=== PATIENT | male | born 1945 | race Caucasian/White ===

== ENCOUNTER 2018-12-27 15:31 | Inpatient (IN) | payer OTHER, BC ==
[~2018-12-27] VITALS: Ht 177.8 cm; Wt 70.3 kg
[2018-12-27 15:41] VITALS: Ht 177.8 cm; Wt 70.3 kg
--- NOTE | 2018-12-27 16:25 | NUR ---
PT PRESENTED TO ED FOR SUPRAPUBIC ABDOMINAL PAIN X 4 DAYS AND URINARY RETENTION AND BURNING UPON URINATION X 4 HOURS. PAIN IN ABDOMEN IS TENDER TO PALPATION. PT REPORTS PAIN IS CRAMPING AND SHARP. PT STATES LAST BM WAS 4 DAYS AGO. PT DENIES ANY NAUSEA, VOMITING, DIARRHEA. PT IN NAD. BREATHING EVEN AND UNLABORED. WILL CONTINUE TO MONITOR.
--- NOTE | 2018-12-27 16:33 | NUR ---
ED PHYSICIAN AT BEDSIDE FOR PATIENT EVALUATION. MEDICAL SCREENING EXAMINATION COMPLETED BY ED PHYSICIAN DR. FUENTES.
[2018-12-27 17:02] LABS: microscopic required? NO
[2018-12-27 17:03] LABS: BASOPHIL % 0.6 % (0-2); PLATELET COUNT 281 x10^3mcL (130-400)
[2018-12-27 17:06] LABS: RED CELL DISTRIBUTION WIDTH 14.6 % (11.5-14.5)
[2018-12-27 17:13] LABS: CALCIUM 9.1 mg/dL (8.5-10.1); CARBON DIOXIDE 28.7 mmol/L (21-32); CHLORIDE SERUM 102 mmol/L (98-107); CREATININE SERUM 0.9 mg/dL (0.7-1.3); GLUCOSE SERUM 115 mg/dL (74-106); POTASSIUM SERUM 3.9 mmol/L (3.5-5.1); SODIUM SERUM 139 mmol/L (136-145)
--- NOTE | 2018-12-27 17:14 | NUR ---
AT BEDSIDE PT IS AAOX4. RESPS E/U. SKIN IS PINK AND WARM. PT PLACED ON MONITOR BED RAIL UP X2 FOR SAFETY. PT ORIENTED TO ROOM, USE OF CALL ASHTON, AND BED IN LOWEST POSITION. PT CALM AND COOPERATIVE. PT HAS HX OF STROKE AND L SIDED WEAKNESS. PT ALSO HAS HX OF PROSTATE ENLARGMENT. PT FEELS NEED TO URINATE, BUT IS UNABLE TO. DR. FUENTES MADE AWARE. NO C/O N/V/D OR FEVER. PT SPEAKING IN FULL SENTENCES.
[2018-12-27 17:16] LABS: UA SPECIFIC GRAVITY 1.015 (1.005-1.035); urine erythrocyte NEGATIVE (NEGATIVE)
[2018-12-27 17:17] LABS: ALBUMIN 3.6 g/dL (3.4-5.0); ALKALINE PHOSPHATASE 87 U/L (46-116); ALT/SGPT 29 U/L (16-63); AST/SGOT 22 U/L (15-37); BILIRUBIN TOTAL 0.34 mg/dL (0.20-1.00); TOTAL PROTEIN, SERUM 7.2 g/dL (6.4-8.2)
--- NOTE | 2018-12-27 18:03 | NUR ---
NO CHANGE IN STATUS. PT WATCHING TV. IN A POSITION OF COMFORT. RESPS E/U, SKIN PINK, WARM AND DRY.
--- NOTE | 2018-12-27 19:19 | NUR ---
BARRON REMOVED, PT TOLERATED WELL. 1600 ML OUTPUT.
[2018-12-27] MEDS ORDERED: CITALOPRAM HYDR10 M1 PO (19:24)
[2018-12-27] MEDS ORDERED: GOOD SENSE ASP325 MG PO (19:24)
[2018-12-27] MEDS ORDERED: COLACE100 MG (19:25)
[2018-12-27] MEDS ORDERED: CLOPIDOGREL75 M1 PO (19:25)
[2018-12-27] MEDS ORDERED: LIPITOR80 MG GT (19:25)
[2018-12-27] MEDS ORDERED: LIPITOR80 MG PO (19:26)
[2018-12-27] MEDS ORDERED: MIDODRINE HCL10 MG PO (19:26)
[2018-12-27] MEDS ORDERED: CYMBALTA60 M1 PO (19:26)
[2018-12-27] MEDS ORDERED: KEPPRA500 MG PO (19:27)
--- NOTE | 2018-12-27 19:48 | NUR ---
RECEIVED REPORT ON PT. PT IS LYING CALMLY IN BED WITH AT BEDSIDE. MED LIST COLLECTED. WILL CONTINUE FORWARD WITH ADMISSION PROCESS.
--- NOTE | 2018-12-27 19:51 | NUR ---
REPORT GIVEN TO MARIE FROM THE TELE UNIT TO ASSUME REPORT.
--- NOTE | 2018-12-27 19:58 | NUR ---
PT AND PROVIDED WITH NEXT STEPS IN ADMISSION PROCESS. PT BEING MOVED TO MED SURG BY KENYA OROZCO.
[2018-12-27 20:00] LABS: CHOLESTEROL/HDL RATIO 2.8; MAGNESIUM 1.9 mg/dL (1.8-2.4); PHOSPHOROUS 3.1 mg/dL (2.5-4.9)
--- NOTE | 2018-12-27 20:00 | NUR ---
RECEIVED PT VIA GUERNEY FROM E/D, ACCOMPANIED BY RN AND TRANSPORTER. PT A/A/O X 4, CALM, COOPERATIVE, PT WITH EPISODES OF DEPRESSION AMB VERBALIZATION OF SADNESS AND LOSS OF BODILY FUNCTION, W/ HX OF SUICIDAL THOUGHTS (SHOOT SELF); PT HAS SLOW BUT CLEAR SPEECH, STARTED ON SEIZURE PRECAUTIONS, IS SITKA, AND WEARS GLASSES (W/ PT). PM AND LOOP RECORDER AT LEFT CHEST WALL (VISIBLE HEALED SX SCARS), DENIES CHEST PAIN OR DISCOMFORT AT THIS TIME. NO RESPIRATORY DISTRESS NOTED. ABD SOFT, FLAT, TENDERNESS UPON PALPATION TO LOWER ABD, HYPERACTIVE BOWEL SOUNDS TO QUADS 1 - 3, NORMOACTIVE TO QUAD 4, DULLNESS ON PERCUSSION TO QUADS 1 - 4, LAST BM 12/23/18, HARD, PT W/ POOR APPETITE. VOIDS FREELY BUT WITH EPISODES OF INCONTINENCE. PT HAS LEFT-SIDED PARALYSIS, FALL RISK PROTOCOL INITIATED, SUBLUXATION OF LEFT SHOULDER. IV SITE RAC 20G, CDI. ORIENTED PT TO ROOM, BED CONTROLS, CALL LIGHT SYSTEM. PADDED SIDE RAILS UP X 2, BED IN LOW POSITION. WILL ENDORSE TO KENYA SALAZAR.
[2018-12-27 20:04] LABS: AMPHETAMINE QUAL UR NONE DETECTED (See below)
[2018-12-27 20:07] LABS: T3 TOTAL 1.12 ng/mL
[2018-12-27 20:11] LABS: FREE T4 0.88 ng/dL (0.76-1.46); FREE THYROXINE INDEX 1.9 ug/dL (1.4-4.5); T4(THYROXINE) 5.5 ug/dL (4.7-13.3)
[2018-12-27 20:50] VITALS: BP 137/79
--- NOTE | 2018-12-27 22:25 | NUR ---
PT HAD MEDIUM, FORMED BOWEL MOVEMENT; DR. RIOJAS MADE AWARE; PER DR. RIOJAS TO CONTINUE ORDER FOR RECTAL SUPP. BUT TO HOLD ON ENEMA; PT REPORTS FEELING BETTER AND STATES "I'M PASSING GAS AND FEEL SOME CRAMPING." PT CLEANED AND SUPP GIVEN; INSTRUCTED PT TO NOTIFY WHEN FEELING THE URGE FOR BM AND BED ARANDA WILL BE USED; PT VERBALIZED UNDERSTANDING.
[2018-12-28 05:54] VITALS: BP 93/59
--- NOTE | 2018-12-28 06:11 | NUR ---
PT HAS BEEN AWAKE WITH MINIMAL SLEEP. PT HAD X2 BM DURING SHIFT, CONTINUING TO HAVE RECTAL AND ABD DISCOMFORT AND CRAMPING. PT CONTINUED TO FEEL CONSTIPATED AND NOT HAVING RELIEF SO ENEMA ADMINISTERED. NO FURTHER BM NOTED OF YET. IV PATENT AND INTACT. SAFETY MEASURES MAINTAINED. CALL LIGHT IN REACH. WILL ENDORSE CARE TO AM NURSE AND CONTINUE TO MONITOR.
[2018-12-28 06:40] LABS: BASOPHIL % 0.4 % (0-2); PLATELET COUNT 244 x10^3mcL (130-400); RED CELL DISTRIBUTION WIDTH 15.5 % (11.5-14.5)
[2018-12-28 06:47] LABS: CALCIUM 8.9 mg/dL (8.5-10.1); CARBON DIOXIDE 26.2 mmol/L (21-32); CHLORIDE SERUM 105 mmol/L (98-107); CREATININE SERUM 0.9 mg/dL (0.7-1.3); GLUCOSE SERUM 142 mg/dL (74-106); MAGNESIUM 1.8 mg/dL (1.8-2.4); PHOSPHOROUS 3.6 mg/dL (2.5-4.9); POTASSIUM SERUM 3.3 mmol/L (3.5-5.1); SODIUM SERUM 142 mmol/L (136-145)
--- NOTE | 2018-12-28 07:30 | NUR ---
RECEIVED PT FROM [place] [facility] OPERATOR RN. Liz/ANDREINA. TELE#28. RESPIRATIONS EQUAL AND UNLABORED ON RA. NO ACUTE RESP DISTRESS NOTED. PT C/O ABDOMINAL CRAMPING. IV TO RAC SALINE LOCKED. NO REDNESS OR SWELLING NOTED. WILL CONTINUE TO MONITOR. CALL LIGHT IN REACH. BED IN LOWEST POSTION.
[2018-12-28 09:30] VITALS: BP 124/82
--- NOTE | 2018-12-28 09:54 | NUR ---
PT IN BED RESTING. GIVEN PO MEDS. TOLERATED WELL. PT STATING HE NEEDS TO HAVE A BM. GIVEN BED ARANDA. DENIES ANY PAIN AT THIS TIME. WILL CONTINUE TO MONITOR. CALL LIGHT IN REACH. BED IN LOWEST POSITION.
[2018-12-28 12:56] VITALS: BP 121/78
--- NOTE | 2018-12-28 14:12 | NUR ---
PT RESTING IN BED. PT HAD A SMALL FORMED HARD BM. PT STATES HE IS CURRENTLY NOT HAVING ABDOMINAL CRAMPING BUT IT COMES AND GOES. SOAP SUDS ENEMA ADMINISTERED. PT STATES HE MAY BE ABLE TO PASS ANOTHER BM BUT IS MAINLY HAVE FLATUS. PT URINATED 180ML OF ENRIQUE URINE. WILL CONTINUE TO MONITOR. BED IN LOWEST POSITION. CALL LIGHT IN REACH.
[2018-12-28 14:22] VITALS: BP 121/78
--- NOTE | 2018-12-28 16:03 | NUR ---
PT SITTING UP IN BED WITH AT BEDSIDE. PT STATES HE HAD A SMALL BM AND IS CURRENTLY HAVING NO ABDOMINAL CRAMPING. PT IS EATING LUNCH. PT STATES HE HAS NOT HAD MUCH OF AN APPETITE LATELY. WILL CONTINUE TO MONITOR. CALL LIGHT IN REACH. BED IN LOWEST POSITION.
[2018-12-28 17:19] VITALS: BP 135/88
--- NOTE | 2018-12-28 17:48 | NUR ---
PT SITTING IN BED ON BEDPAN. PT C/O ABDOMINAL CRAMPING AND FEELING THE NEED TO HAVE A BM. REMOVED 3 SMALL HARD STOOLS DIGITALLY. PT STATES HE FEELS SOME RELEIF BUT STILL FEELS CONSTIPATED. PT SITTING UP EATING DINNER. WILL CONTINUE TO MONITOR. CALL LIGHT IN REACH. BED IN LOWEST POSITION.
--- NOTE | 2018-12-28 18:41 | NUR ---
PT RESTING IN BED. GIVEN MOM PO. ALSO ADMINISTERED FLEET ENEMA. PT STATES HE WAS ABLE TO HAVE A SMALL BM BUT STILL FEELS THE URGE TO GO. RESPIRATIONS EQUAL AND UNLABORED ON RA. NO ACUTE DISTRESS NOTED. IV SALINE LOCKED. NO REDNESS OR SWELLING NOTED. WILL CONTINUE TO MONITOR. CALL LIGHT IN REACH. BED IN LOWEST POSITION.
--- NOTE | 2018-12-28 18:56 | NUR ---
PT PASSED MEDIUM SIZE HARD BM. PT STATES HE HAS FELT SOME RELEIF SINCE PASSING BM. DENIES ANY ABD PAIN AT THIS TIME. RESPIRATIONS EQUAL AND UNLABORED ON RA. NO ACUTE DISTRESS NOTED. TELE#28. IV SALINE LOCKED. NO REDNESS OR SWELLING NOTED. WILL ENDORSE TO TRIPPER RN. CALL LIGHT IN REACH. BED IN LOWEST POSITION.
--- NOTE | 2018-12-28 19:17 | NUR ---
PT RECEIVED A/O X4, SLOW SPEECH, ABLE TO MAKE NEEDS KNOWN. WALES IN VETO EARS. SEIZURE PRECAUTIONS IN PLACE. TELE #28, NSR, DENIES ANY CHEST PAIN/PRESSURE. PACEMAKER TO LEFT UPPER CHEST. PULSES PALPABLE, NO EDEMA PRESENT. LUNG SOUNDS CTA, BREATHING EVEN AND UNLABORED ON RA, DENIES SOB, NO RESP DISTRESS NOTED. ABD SOFT AND FLAT, BOWEL TONES HYPERACTIVE X4 QUAD, DENIES N/V. VOIDS FREELY, MAY HAVE EPISODES OF URINARY RETENTION, URINAL AT BEDSIDE. GENERALIZED WEAKNESS, LEFT-SIDED PARALYSIS. SKIN IS INTACT. PT DENIES DENIES ANY PAIN AT THIS TIME. SL TO RAC, PATENT AND INTACT, SITE WNL. BED IN LOWEST SETTING, SIDE RAILS UP X2, CALL LIGHT WITHIN REACH. WILL CONT TO MONITOR.
[2018-12-28 20:41] VITALS: BP 122/81
--- NOTE | 2018-12-28 22:38 | NUR ---
PT ASSISTED ONTO BEDPAN, NO BM AT THIS TIME, VOIDED ONLY. PT REPORTS PASSING A LOT OF GAS. PT CLEANED AND REPOSITIONED. NO ACUTE DISTRESS NOTED. BED ALARM ON. CALL LIGHT WITHIN REACH. WILL CONT TO MONITOR.
--- NOTE | 2018-12-29 00:18 | NUR ---
PT RESTING IN BED, AWAKE AND ALERT. BREATHING IS EVEN AND UNLABORED, NO RESP DISTRESS NOTED. PT DENIES HAVING ANY PAIN AT THIS TIME. SL TO RAC INTACT. BED ALARM ON. CALL LIGHT WITHIN REACH. NO ACUTE DISTRESS NOTED. WILL CONT TO MONITOR.
[2018-12-29 05:23] VITALS: BP 101/65
[2018-12-29 06:32] LABS: CALCIUM 9.3 mg/dL (8.5-10.1); CARBON DIOXIDE 29.9 mmol/L (21-32); CHLORIDE SERUM 104 mmol/L (98-107); CREATININE SERUM 0.8 mg/dL (0.7-1.3); GLUCOSE SERUM 98 mg/dL (74-106); SODIUM SERUM 141 mmol/L (136-145)
--- NOTE | 2018-12-29 06:39 | NUR ---
PT SLEPT AT INTERVALS THROUGHOUT THE NIGHT. BREATHING IS EVEN AND UNLABORED, NO RESP DISTRESS NOTED. PT DENIES HAVING ANY PAIN AT THIS TIME. DR GALVAN AT BEDSIDE ASSESSING PT. PER DR GALVAN, HOLD FLEET ENEMA AT TIME. SL TO RAC, PATENT AND INTACT, SITE WNL. ALL NEEDS MET. BED ALARM ON. CALL LIGHT WITHIN REACH. WILL ENDORSE CARE TO AM NURSE.
[2018-12-29 06:49] LABS: BASOPHIL % 0.9 % (0-2); PLATELET COUNT 258 x10^3mcL (130-400); RED CELL DISTRIBUTION WIDTH 15.2 % (11.5-14.5)
--- NOTE | 2018-12-29 07:38 | NUR ---
PT SEEN REST ON BED, A/O X 4. PT NO COMPLAIN OF PAIN AT THIS TIME. PT BREATHING ON RA, EVEN, UNLABORED. PT HAD LEFT SIDE WEAKNESS. PT REPORTED HE USED QUART CANE AT HOME. IV SITE PATENT, INTACT. SALINE LOCK PER ORDER. CALL LIGHT NEXT TO R HAND WITHIN REACH. WILL CONTINUE TO MONITOR.
[2018-12-29 08:27] VITALS: BP 94/58
--- NOTE | 2018-12-29 10:35 | NUR ---
PHYSICAL THERAPIST PROCESS PT EVAL. PT AMBULATED IN [place] WITH [facility]YN[facility] WALKER. PT DOING WELL. WILL CONTINUE TO MONITOR.
[2018-12-29 13:33] VITALS: BP 124/69
--- NOTE | 2018-12-29 13:56 | NUR ---
Initial Nutrition Assessment Dx: Severe constipation, Urinary retention PMHx: CVA (2018), Congenital heart defect, symptomatic bradycardia, prostate CA s/p radiation (2012), BPH PSHx: Pacemaker placement, loop recorder placement, and heart sx (date unknown) Labs: (12/29) Na 141, K 4, BG 98, BUN 15, Cr 0.8. A1c 5.9, WBC 6.1, H/H 11.4L/34L Meds: Aspirin, Colace, Symbalta, Dulcolax, Flomax, Keppra, Lipitor, Plavix, Pro-Amatine, Tylenol, Zofran, Celexa Diet: FLD PO Intake: (12/29) B: 100% (12/30) B: 50% Ht: 70" (178 cm) Wt: 155# (70.3 kg) BMI: 22.2 (Lower end WNL for advanced age) IBW: 166# %IBW: 93% UBW: 150-155# Age: 73 y/o elderly male Food Allergies: NKFA Skin: Intact Michael: 17 Edema: None GI: Last BM x 8 hard, small stools (2/4) Per H&P, pt. admitted with urinary retention x 1 day associated with suprapubic pain and dysuria and no BM x 4 days. Recovering from recent UTI for which pt. completed the course of prescribed antibiotics x 3 weeks ago. Abdominal X-ray conducted on 12/27 with findings that suggest mild fecal retention in the descending colon and rectum. Ileus pattern noted without evidence for bowel obstruction per provider notes. Pt. endorses fair to good appetite, which has improved from admission. Continues to c/o mild constipation, but states that medications provided for BM regimen has been helping. Updated food preferences on [employer] and will provide as able. T: Poor PO intake >3 days, appears malnourished/underweight Problem with: No c/o N/V/D/C Problems with: Chewing: N Swallowing: N Current appetite: Fair to good; improving Recent wt change: None %wt change: N/A Vitamin/Supplement use: MVI QD Special diet at home: Regular Physical activity: Walks with cane at baseline Education: No diet education provided. Encouraged pt. to increase fluid and fiber intake to stimulate BM. Estimated Nutritional Needs Based on actual body weight 70.3 kg: Energy: 0885-5125 kcal/d (25-30 kcal/kg- geriatric maintenance) Protein: 70-84 g/d (1.0-1.2 g/kg)-maintenance and preservation of lean body mass Fluid: 3939-1003 ml/d (1 ml/kcal-fluid balance) or per doctor Nutrition Diagnosis 1. Altered GI function r/t chronic medical condition AEB pt. reports of not having BM x 4 days prior to admission and continued c/o constipation and hard stools. Intervention/RD recommendations 1. When medically able, advance diet to regular diet to accommodate for food preferences. 2. Will add prune juice and yogurt (strawberry or raspberry per pt. request) TID w/meals for dietary measures for BM management. Monitor/Evaluate Goal: PO intake at least 75% of estimated needs Monitor: PO intake, Labs, GI function, diet tolerance F/U in 3-5 days as moderate risk (01/01-01/03)
--- NOTE | 2018-12-29 15:04 | NUR ---
PT'S AT BED SIDE. MADE HER AWARE ABOUT PT'S CARE PLAN. CONCERN AND QUESTIONS ANSWERED.
[2018-12-29 16:27] VITALS: BP 111/72
--- NOTE | 2018-12-29 19:25 | NUR ---
PT RECEIVED A/O X4, SLOW SPEECH, ABLE TO MAKE NEEDS KNOWN. [place] IN VETO EARS. SEIZURE PRECAUTIONS IN PLACE. TELE #28, DENIES ANY CHEST PAIN/PRESSURE. PACEMAKER TO LEFT UPPER CHEST. PULSES PALPABLE, NO EDEMA PRESENT. LUNG SOUNDS CTA, BREATHING EVEN AND UNLABORED ON RA, NO RESP DISTRESS NOTED. ABD SOFT AND FLAT, BOWEL TONES HYPERACTIVE X4 QUAD, DENIES N/V. PT REPORTS HAVING ABD CRAMPS AT TIMES. AM NURSE AT BEDSIDE ADMINISTERED SUPPOSITORY. VOIDS FREELY, URINAL AT BEDSIDE. GENERALIZED WEAKNESS, LEFT-SIDED PARALYSIS FROM PREVIOUS CVA. SKIN IS INTACT. PT DENIES DENIES ANY PAIN AT THIS TIME. SL TO RAC, PATENT AND INTACT, SITE WNL. BED IN LOWEST SETTING, SIDE RAILS UP X2, CALL LIGHT WITHIN REACH. WILL CONT TO MONITOR.
--- NOTE | 2018-12-29 19:25 | NUR ---
ENDORSED PT CARE TO COMING NURSE. PT COMPLAIN OF NO BM TODAY. DUCOLAX SUP GIVEN PER PRN ORDER. PT REST ON BED, NO COMPLAIN OF PAIN. IV SITE SALINE LOCK AT THIS TIME.
[2018-12-29 20:17] VITALS: BP 125/76
--- NOTE | 2018-12-29 22:50 | NUR ---
PT HAD MEDIUM-SIZED BM, FORMED. DARK RED BLOOD NOTED ON BLOOD ARANDA. NO ACUTE DISTRESS NOTED. DR RIOJAS MADE AWARE OF BLOOD IN STOOL. PER DR RIOJAS, "IT'S OKAY, IT'S PROBABLY FROM ALL HIS STRAINING." NO NEW ORDERS AT THIS TIME. WILL CONT TO MONITOR.
--- NOTE | 2018-12-30 00:38 | NUR ---
PT RESTING IN BED WITH EYES CLOSED, BUT IS EASILY AROUSABLE. BREATHING IS EVEN AND UNLABORED, NO RESP DISTRESS NOTED. NO S/S OF PAIN OBSERVED. IV INTACT. BED ALARM ON. CALL LIGHT AND BELONINGS WITHIN REACH. NO ACUTE DISTRESS NOTED. WILL CONT TO MONITOR.
[2018-12-30 05:32] VITALS: BP 113/74
--- NOTE | 2018-12-30 06:02 | NUR ---
PT SLEPT WELL THROUGHOUT THE EVENING. BREATHING EVEN AND UNLABORED, NO RESP DISTRESS NOTED. PT DENIES HAVING ANY PAIN AT THIS TIME. PT HAD BM X2 WITH DARK RED BLOOD NOTED, DR CROCKER AWARE. SL TO RAC, PATENT AND INTACT. ALL NEEDS MET. NO ACUTE DISTRESS NOTED. CALL LIGHT WITHIN REACH. WILL ENDORSE CARE TO AM NURSE.
[2018-12-30 06:26] LABS: CALCIUM 9.8 mg/dL (8.5-10.1); CARBON DIOXIDE 30.9 mmol/L (21-32); CHLORIDE SERUM 104 mmol/L (98-107); CREATININE SERUM 0.7 mg/dL (0.7-1.3); GLUCOSE SERUM 99 mg/dL (74-106); POTASSIUM SERUM 4.1 mmol/L (3.5-5.1); SODIUM SERUM 140 mmol/L (136-145)
--- NOTE | 2018-12-30 07:22 | NUR ---
PT SEEN REST ON BED, NO COMPLAIN OF PAIN AT THIS TIME. PT BREATHING ON RA, EVEN, UNLABORED. IV SITE PATENT, INTACT. SALINE LOCK AT THIS TIME.
[2018-12-30 07:31] LABS: PLATELET COUNT 259 x10^3mcL (130-400); RED CELL DISTRIBUTION WIDTH 15.3 % (11.5-14.5)
[2018-12-30] MEDS ORDERED: MIRALAX17 GM PO (08:41)
[2018-12-30 09:19] VITALS: BP 93/73
[2018-12-30 12:24] VITALS: BP 93/73
--- NOTE | 2018-12-30 13:21 | NUR ---
PT'S REPORT GIVEN TO [facility] STAFF DEYANIRA. QUESTIONS AND CONCERNS ADDRESSED. TRANSFER INSTRUCTION AND EDUCATION GIVEN TO PT. PT AGREED WITH TRANSFER. IV, ID BAND AND TELE MONITOR REMOVED. WAITING FOR TRANSPORTATION ARRIVE. NO DISTRESSED NOTED AT THIS TIME.
[2018-12-30 13:29] VITALS: BP 111/74
== END 2018-12-30 13:40 | disposition home or self-care (01) | DRG 726 ==
LOC: ED 15:31 → DU 19:18 → MU 19:18 → DU 19:57 → MU 19:59 → DU 12-28 04:56
PROVIDERS: Emergency Medicine; Internal Medicine; ADMIT Family Medicine
DX: N40.1 Benign prostatic hyperplasia with lower urinary tract symptoms (principal); I69.354 Hemiplegia and hemiparesis following cerebral infarction affecting left non-dominant side; K59.00 Constipation, unspecified; R33.8 Other retention of urine; N13.9 Obstructive and reflux uropathy, unspecified; E87.6 Hypokalemia; R00.1 Bradycardia, unspecified; R73.03 Prediabetes; G40.909 Epilepsy, unspecified, not intractable, without status epilepticus; F32.9 Major depressive disorder, single episode, unspecified; Z68.22 Body mass index [BMI] 22.0-22.9, adult; Z85.46 Personal history of malignant neoplasm of prostate; Z92.3 Personal history of irradiation; Z95.0 Presence of cardiac pacemaker; Z87.891 Personal history of nicotine dependence
CPT/HCPCS: 83880; 84439; 97110-GP; 97116-GP; 97530-GP; J2405; Q0092

== ENCOUNTER 2019-02-16 12:44 | Inpatient (IN) | payer OTHER, BC ==
[~2019-02-16] VITALS: Ht 177.8 cm; Wt 72.7 kg
[~2019-02-16 12:44] MED LIST: CITALOPRAM HYDR10 M1 PO; CLOPIDOGREL75 M1 PO; COLACE100 MG PO; CYMBALTA60 M1 PO; GOOD SENSE ASP325 MG PO; KEPPRA500 MG PO; LIPITOR80 MG GT; LIPITOR80 MG PO; MIDODRINE HCL10 MG PO; MIRALAX17 GM PO
--- NOTE | 2019-02-16 13:05 | NUR ---
EKG DONE BY GENEVIEVE RODAS
--- NOTE | 2019-02-16 13:06 | NUR ---
PT BIB [facility] S/P NEAR SYNCOPY AT HOME WHILE WALKING TO THE BATHROOM PER BENCH INSPECTOR HIS SBP WAS 55 AND INCREASED TO MID 90'S WITH 300 NS BOLUS PER BENCH INSPECTOR THEY ALSO PLACED HIM IN REVERSE [place] POSITION WITH FEET RAISED PT DENIES LOC OR TRAUMA PER PT " CAUGHT ME AND BROUGHT ME SLOWLY TO THE FLOOR" PT REPORTS HX LEFT SIDE STROKE AND PACEMAKER PT AAOX4 RESPS E/U NO NEURO DEFICITS NOTED +PMSC TO ALL EXTREMITIES WITH LEFT SIDE WEAKNESS NOTED PT PLACED ON FULL ACCOUNTS RECEIVABLE SPECIALIST WILL CONTINUE TO MONITOR
--- NOTE | 2019-02-16 13:13 | NUR ---
PT TAKEN TO CT VIA DANNI
[2019-02-16 13:26] LABS: BASOPHIL % 0.6 % (0-2); PLATELET COUNT 290 x10^3mcL (130-400)
[2019-02-16 13:28] LABS: CALCIUM 8.6 mg/dL (8.5-10.1); CARBON DIOXIDE 30.4 mmol/L (21-32); CHLORIDE SERUM 105 mmol/L (98-107); CREATININE SERUM 0.9 mg/dL (0.7-1.3); GLUCOSE SERUM 125 mg/dL (74-106); POTASSIUM SERUM 4.3 mmol/L (3.5-5.1); SODIUM SERUM 142 mmol/L (136-145)
[2019-02-16 13:32] LABS: ALBUMIN 3.1 g/dL (3.4-5.0); ALKALINE PHOSPHATASE 69 U/L (46-116); ALT/SGPT 25 U/L (16-63); AST/SGOT 22 U/L (15-37); BILIRUBIN TOTAL 0.3 mg/dL (0.20-1.00); CHOLESTEROL 140 mg/dL (<200); TOTAL PROTEIN, SERUM 6.4 g/dL (6.4-8.2)
[2019-02-16 13:43] LABS: RED CELL DISTRIBUTION WIDTH 15.8 % (11.5-14.5)
--- NOTE | 2019-02-16 13:47 | NUR ---
PT SPOUSE AT BEDSIDE
--- NOTE | 2019-02-16 13:49 | NUR ---
PER PT SPOUSE "HIS BP IS USUALLY 90-110/60-70"
[2019-02-16] MEDS ORDERED: PANTOPRAZOLE SO40 M1 PO (14:49)
[2019-02-16] MEDS ORDERED: TAMSULOSIN HYD0.4 M1 PO (14:49)
[2019-02-16] MEDS ORDERED: TRAMADOL HCL50 MG PO (14:50)
--- NOTE | 2019-02-16 15:15 | NUR ---
RECEIVED PT FROM ED VIA IndelsulLEVI, CAME IN DUE TO SYNCOPE, DIZZINESS AND HYPOTENSION. AAO4. DENIES HEADACHE/DIZZINESS. W/ LEFT FACIAL DROOP AND LEFT SIDED WEAKNESS. NO SOB NOTED, LUNG SOUNDS CTA. DENIES CHEST PAIN/PRESSURE, SR ON THE MONITOR. W/ LEFT CHEST PACEMAKER. DENIES ABDOMINAL DISCOMFORT, HAS SOFT BM TODAY. VOIDS FREELY. W/ ERYTHEMA ON THE RIGHT LOWER BUTTOCK AND DISCOLORATIONS ON THE LEFT ARM, HEIDI. SIDE RAILS UPX2. CALL LIGHT ON REACH. HOB ELEVATED AT 30 DEG. WILL CONT TO MONITOR
[2019-02-16 15:16] LABS: CHOLESTEROL/HDL RATIO 2.5
[2019-02-16 15:48] VITALS: BP 112/68
[2019-02-16 15:51] VITALS: Ht 177.8 cm; Wt 72.7 kg
--- NOTE | 2019-02-16 16:40 | NUR ---
PT HAS HIS EYES CLOSED, NO S/S OF PAIN AND SOB NOTED. IV SITE ON THE LAC IS PATENT AND INTACT. NEEDS ARE ATTENDED. CALL LIGHT ON REACH. WILL CONT TO MONITOR
[2019-02-16 17:08] LABS: microscopic required? YES; urine erythrocyte NEGATIVE (NEGATIVE)
[2019-02-16 17:17] LABS: AMPHETAMINE QUAL UR NONE DETECTED (See below)
--- NOTE | 2019-02-16 17:29 | NUR ---
DR. JAQUEZ MADE AWARE THAT UA SHOWS TRACE LEUKOCYTE, PER DR. JAQUEZ SENT URINE FOR CULTURE. NO OTHER NEW ORDERS NOTED AT THIS TIME. WILL CONT TO MONITOR
--- NOTE | 2019-02-16 19:04 | NUR ---
PT LYING IN BED, AAOX4. W/ LEFT FACIAL DROOP AND LEFT SIDED WEAKNESS. SPEECH IS CLEAR. NO SOB NOTED, LUNG SOUNDS CTA. DENIES CHEST PAIN/PRESSURE, NSR ON THE MONITOR. DENIES ABDOMINAL DISCOMFORT. BOWEL SOUNDS ACTIVE. LAST BM=02/16/19, SOFT. VOIDS ON THE URINAL, W/ CLEAR YELLOW URINE NOTED. W/ DISCOLORATIONS ON THE LUE AND ERYTHEMA ON THE RIGHT LOWER BUTTOCK. SIDE RAILS UPX2. CALL LIGHT ON REACH. HOB ELEVATED AT 30 DEG. BED ON THE LOWEST POSITION. WILL CONT TO MONITOR
--- NOTE | 2019-02-16 20:30 | NUR ---
AIR MATTRESS AND SCD'S APPLIED
[2019-02-16 21:25] VITALS: BP 115/68
--- NOTE | 2019-02-17 01:55 | NUR ---
PT HAS HIS EYES CLOSED, NO S/S OF PAIN AND SOB NOTED
--- NOTE | 2019-02-17 05:25 | NUR ---
PT HAS HIS EYES CLOSED, EASILY AROUSABLE TO VERBAL STIMULI. NO S/S OF PAIN AND SOB. IV SITE ON THE RFA GAUGE 22 IS PATENT AND INTACT. ON AIR MATTRESS. SIDE RAILS UPX2. CALL LIGHT ON REACH. NEEDS ARE ATTENDED. WILL CONT TO MONITOR
[2019-02-17 06:05] VITALS: BP 132/60
[2019-02-17 07:20] LABS: CALCIUM 8.8 mg/dL (8.5-10.1); CARBON DIOXIDE 28.6 mmol/L (21-32); CHLORIDE SERUM 107 mmol/L (98-107); CREATININE SERUM 0.8 mg/dL (0.7-1.3); GLUCOSE SERUM 86 mg/dL (74-106); POTASSIUM SERUM 3.9 mmol/L (3.5-5.1); SODIUM SERUM 143 mmol/L (136-145)
--- NOTE | 2019-02-17 07:24 | NUR ---
BEDSIDE REPORT GIVEN TO MAURICE FOR CONTINUITY OF CARE
--- NOTE | 2019-02-17 07:55 | NUR ---
RECIEVED PATIENT FROM KENYA MARTINEZ. PATIENT CURRENTLY SLEEPING W NO SIGNS OF DISTRESS OR SOB. WILL CONTINUE TO MONITOR BP.
[2019-02-17 08:10] LABS: BASOPHIL % 0.8 % (0-2); PLATELET COUNT 269 x10^3mcL (130-400); RED CELL DISTRIBUTION WIDTH 15.7 % (11.5-14.5)
[2019-02-17 09:41] VITALS: BP 109/63
--- NOTE | 2019-02-17 09:43 | NUR ---
PATIENT IN BED RESTING, NO COMPLAINTS OF PAIN, NO SIGNS OF SOB OR SYNCOPE. CALL LIGHT IN REACH, PATIENT AWARE TO CALL FOR ASSISTANCE WITH BMS.
[2019-02-17 13:33] VITALS: BP 107/66
--- NOTE | 2019-02-17 13:35 | NUR ---
PATIENT IN BED SLEEPING, NO COMPLAINTS OF PAIN. PO PROAMATINE GIVEN, PATIENT TOLERATED, NOW EATING EATING LUNCH TRAY. CALL LIGHT IN REACH.
--- NOTE | 2019-02-17 16:36 | NUR ---
PATIENT AND IN ROOM SPEAKING W AUTOMATIC SEAMER MELIZA. PATIENT CLAIMS THAT PATIENT KEPPRA HOME MEDICATIONS IS 2000 MG TID. DIALED PATIENT PCP DR SCHREIBER ABOUT PATIENTS HOME MEDICATION LIST. DR BO WILL FAX HOME MEDICATION SHEET TO [address] [place] [address].
[2019-02-17 17:10] VITALS: BP 98/62
--- NOTE | 2019-02-17 17:12 | NUR ---
PATIENT COMPLETED BREATHING TREATMENT W RT ARTUR. DR SONW WAS IN ROOM TO SPEAK W PATIENT. CURRENTLY ON 3 LPM VIA NC. PRODUCTIVE COUGH, NO PAIN. CALL LIGHT IN REACH, FIANCE AT BEDSIDE.
--- NOTE | 2019-02-17 18:34 | NUR ---
PATIENT IN BED RESTING, NO SIGNS OF SYNCOPE. WILL ENDORSE TO ONCOMING NURSE ABOUT KEPPRA DOSAGE & REQUEST TO SHOWER PER .
[2019-02-17 20:04] VITALS: BP 97/62
--- NOTE | 2019-02-17 20:09 | NUR ---
PATIENT RECEIVED IN BED AWAKE,ALERT AND ORIENTED X4, SPEECH CLEAR, WITH HX; CVA, NOTED DEFICIT WHICH IS A LEFT FACIAL DROOP, LUE FLACCID, LLE WEAKNESSPER. DENIED DIZZINESS NOR [place]. BREATHING EVEN AND UNLABORED BS CLEAR , ON ROOM AIR SAT 96-98%, DENIED SOB. DENIES CHEST PAINS, HR=68BPM, HX; PACERMAKER ( DEMAND), NSR ON THE MONITOR, NO PACER BEATS NOTED, DENIES CHEST PAINS.HEPLOCK TO RT FA. PATIENT ABLE TO PARTICIPATE IN SIMPLE ADL'S, NEEDS ANTICIPATED, CALL LIGHT IN REACH INFORMED TO CALL NURSE IF NEEDS ARISES, CALL LIGHT IN REACH. PATIENT WITH GENERALIZED WEAKNESS, STATES USES CANE AND WALKER AT HOME,HX; SZ , NO SZ ACTIVITY THIS TIME. WILL CONTINUE TO MONITOR.
--- NOTE | 2019-02-17 21:39 | NUR ---
SCHEDULED MEDS ADMINISTERED , PATIENT INFORMED ABOUT EACH MEDS ACTIONS AND PURPOSES PRIOR. PLACED IN A SITTING POSITION. TOOK PILLS WELL. ALSO COMPLAINED OF LEFT SHIULDER PAIN, RATE AT 5/10 MEDICATED PRN. MADE COMFORTABLE. WILL CHECK EFFECTIVENESS.
--- NOTE | 2019-02-17 22:36 | NUR ---
CHECKED EFFECTIVENESS OF NORCO FOR COMPLAINT OF LEFT SHOULDER PAIN, PATIENT STATED PAIN IS AT 1/10 NOW, COMFORTABLE.
--- NOTE | 2019-02-18 01:00 | NUR ---
PATIENT CHECKED THIS TIME, SLEEPING BUT EASILY AWAKEN, OFFERED NO COMPLAINTS, VOIDED PER URINAL EMPTIED. SAFETY MAINTAINED,. WILL CONTINUE TO MONITOR.
[2019-02-18 05:26] VITALS: BP 103/62
--- NOTE | 2019-02-18 06:21 | NUR ---
PATIENT STATED THAT HE HAD A RESTFUL AND COMFORTABLE NIGHT, NO DIZZINESS DURING THE SHIFT, DEMAND PACER BEATS NOTED. HEPLOCK INTACT. VOIDED WITHOUT DIFF USED URINAL.NO SZ ACTIVITY. SAFETY/FALL PRECAUTIONS MAINTAINED. WILL ENDORSE CONTINUITY OF CARE TO INCOMING NURSE.
[2019-02-18 06:22] LABS: BASOPHIL % 1.4 % (0-2); PLATELET COUNT 283 x10^3mcL (130-400)
[2019-02-18 06:43] LABS: CARBON DIOXIDE 28.7 mmol/L (21-32); CHLORIDE SERUM 107 mmol/L (98-107); CREATININE SERUM 0.8 mg/dL (0.7-1.3); GLUCOSE SERUM 81 mg/dL (74-106); POTASSIUM SERUM 3.9 mmol/L (3.5-5.1); SODIUM SERUM 142 mmol/L (136-145)
[2019-02-18 07:06] LABS: RED CELL DISTRIBUTION WIDTH 15.7 % (11.5-14.5)
--- NOTE | 2019-02-18 07:26 | NUR ---
BEDSIDE HANDS OFF PERFORMED WITH INCOMING NURSE LISA-RN.
--- NOTE | 2019-02-18 07:45 | NUR ---
RECEIVED PATIENT FROM KENYA MCKEON. PATIENT HAS NO COMPLAINTS OF PAIN, NO SOB. PATIENT ASKED FOR BED ARANDA, ABLE TO PASS FLATUS BUT NO BM. WILL CONTINUE TO MONITOR FOR SYNCOPE & HYPOTENSION. CALL LIGHT IN REACH.
[2019-02-18 09:18] VITALS: BP 105/59
--- NOTE | 2019-02-18 10:34 | NUR ---
DR JAQUEZ & DR HU IN TO SEE PATIENT. DR JAQUEZ STATES PATIENT IS CLEARED TO GO, DR HU WELL. DR JAQUEZ ARRANGED FOR ADDITIONAL KEPPRA 500 MG TO BE GIVEN TO PATIENT. CURRENTLY NO SIGNS OF PAIN, SYNCOPE, OR RESPIRATORY DISTRESS. CALL LIGHT IN REACH.
[2019-02-18 11:58] VITALS: BP 105/59
--- NOTE | 2019-02-18 12:13 | NUR ---
PATIENT IN BED, RESTING, SBP IS 109. NO COMPLAINTS OF PAIN AT THIS TIME. CALL LIGHT IN REACH, BED IN LOWEST POSITION.
[2019-02-18 12:54] VITALS: BP 109/64
--- NOTE | 2019-02-18 14:31 | NUR ---
SPOKE AT LENGTH W PATIENT . SHE IS VISIBLY UPSET ABOUT PATIENT AND HIS HABIT OF NOT DRINKING ORAL FLUIDS. TEACHING ABOUT HYDRATION, BLOOD PRESSURE, DIET, MEDICATIONS, PHYSICAL THERAPY, CASE MANAGEMENT, RESPITE CARE TO PATIENT & . PATIENT STATES SHE IS FRUSTRATED ABOUT HAVING TO TAKE CARE OF PATIENT ALL ON HER OWN. SHE STATES SHE WOULD LIKE TO SPEAK W DR JAQUEZ ABOUT CONTINUING HOSPITAL COURSE OF [place] PO. WILL ROSA JAQUEZ.
--- NOTE | 2019-02-18 15:49 | NUR ---
PATIENT IN BED WITH AT BEDSIDE. PATIENT COMPLETED PT. DISCHARGE INSTRUCTIONS GIVEN TO & PATIENT. DISCHARGE PACKET GIVEN TO PATIENT & , MEDICAL RECORDS AUTHORIZATION GIVEN TO . IV CATHETER REMOVED & CATHETER INTACT, TELEMETRY RETURNED TO [facility]. PATIENT W BELONGINGS ESCORTED VIA WHEELCHAIR DOWN STAIRS ACCOMPANIED BY PARVEEN BARNETT.
== END 2019-02-18 15:51 | disposition home or self-care (01) | DRG 315 ==
LOC: ED 12:44 → DU 14:34
PROVIDERS: Specialist; ADMIT Internal Medicine
DX: I95.9 Hypotension, unspecified (principal); I69.354 Hemiplegia and hemiparesis following cerebral infarction affecting left non-dominant side; G93.40 Encephalopathy, unspecified; R55 Syncope and collapse; E86.0 Dehydration; G62.9 Polyneuropathy, unspecified; I25.10 Atherosclerotic heart disease of native coronary artery without angina pectoris; D64.9 Anemia, unspecified; M19.90 Unspecified osteoarthritis, unspecified site; Z68.25 Body mass index [BMI] 25.0-25.9, adult; Z95.0 Presence of cardiac pacemaker; Z79.82 Long term (current) use of aspirin
CPT/HCPCS: 97116-GP; G0480; J7030; Q0092

== ENCOUNTER 2019-04-03 03:47 | Emergency (ER) | payer OTHER, BC ==
[~2019-04-03] VITALS: Ht 177.8 cm; Wt 72.1 kg
[~2019-04-03 03:47] MED LIST changes: +PANTOPRAZOLE SO40 M1 PO; +TAMSULOSIN HYD0.4 M1 PO; +TRAMADOL HCL50 MG PO
[2019-04-03 03:54] VITALS: Ht 177.8 cm; Wt 72.1 kg
[2019-04-03 04:31] LABS: BASOPHIL % 0.5 % (0-2); PLATELET COUNT 270 x10^3mcL (130-400)
[2019-04-03 04:32] LABS: RED CELL DISTRIBUTION WIDTH 15.2 % (11.5-14.5)
[2019-04-03 05:00] LABS: CALCIUM 9.3 mg/dL (8.5-10.1); CARBON DIOXIDE 26.4 mmol/L (21-32); CHLORIDE SERUM 105 mmol/L (98-107); GLUCOSE SERUM 107 mg/dL (74-106); POTASSIUM SERUM 3.6 mmol/L (3.5-5.1); SODIUM SERUM 140 mmol/L (136-145)
[2019-04-03 05:05] LABS: ALBUMIN 3.4 g/dL (3.4-5.0); ALKALINE PHOSPHATASE 65 U/L (46-116); ALT/SGPT 27 U/L (16-63); AST/SGOT 19 U/L (15-37); BILIRUBIN TOTAL 0.33 mg/dL (0.20-1.00); CHOLESTEROL 143 mg/dL (<200); HDL CHOLESTEROL 55 mg/dL (40-60); TOTAL PROTEIN, SERUM 6.5 g/dL (6.4-8.2)
[2019-04-03 05:12] LABS: FREE T4 1.08 ng/dL (0.76-1.46); T4(THYROXINE) 5.5 ug/dL (4.7-13.3)
[2019-04-03 13:47] VITALS: BP 100/66
[2019-04-03 14:17] LABS: T3 TOTAL 0.97 ng/mL
== END 2019-04-03 13:47 | disposition home or self-care (01) ==
LOC: ED 03:47
PROVIDERS: Emergency Medicine
DX: R55 Syncope and collapse (principal); E86.0 Dehydration; I10 Essential (primary) hypertension
CPT/HCPCS: 84439; J7040; Q0092